=== PATIENT | female | born 1970 | race Caucasian/White ===

== ENCOUNTER → 2016-06-25 | Outpatient (CLI) | payer BC, SELFPAY ==
--- NOTE | 2016-06-25 10:50 | US ---
EXAM DESCRIPTION: US THYROID CLINICAL HISTORY: 45 y/o F, NONTOXIC GOITER COMPARISON: October 2012. TECHNIQUE: Grayscale and color Doppler imaging of the thyroid gland was performed. Images were compared to prior from 2012. FINDINGS: The right thyroid lobe measures 5.1 x 2.0 x 2.6 cm. The left measures 5.1 x 2.3 x 2.1 cm. The isthmus measures 3 mm in diameter. Multinodular goiter noted. The largest nodule seen within the right thyroid lobe measures 1.5 x 1.0 x 1.0 cm. The largest within the left thyroid lobe measures 1.6 x 1.6 x 1.2 cm. IMPRESSION: Multinodular goiter again noted. Given slight technique differences the nodules are likely stable when compared to prior from 2012. Electronically signed by: Jose Luis Blas MD 06/25/2016 10:48
== END ==
LOC: US 09:41
PROVIDERS: ATTEND Family Medicine
DX: E04.8 Other specified nontoxic goiter (principal)

== ENCOUNTER → 2017-02-05 | Outpatient (CLI) | payer OTHER | END | disposition home or self-care (01) | LOC: GMAJ 10:13 | PROVIDERS: ATTEND Family Medicine | DX: Z00.00 Encounter for general adult medical examination without abnormal findings (principal) ==

== ENCOUNTER → 2017-05-12 | Outpatient (CLI) | payer OTHER | END | disposition home or self-care (01) | LOC: GMAJ 11:52 | PROVIDERS: ATTEND Family Medicine | DX: E03.9 Hypothyroidism, unspecified (principal) ==

== ENCOUNTER → 2018-06-26 | Outpatient (CLI) | payer BC | LOC: GMAL 10:34 | PROVIDERS: ATTEND Family Medicine | DX: E03.9 Hypothyroidism, unspecified (principal) ==

== ENCOUNTER → 2019-06-02 | Outpatient (CLI) | payer BC | LOC: GMAJ 14:26 | PROVIDERS: ATTEND Family Medicine | DX: E03.9 Hypothyroidism, unspecified (principal); N30.01 Acute cystitis with hematuria ==

== ENCOUNTER → 2019-07-12 | Outpatient (CLI) | payer BC ==
--- NOTE | 2019-07-13 15:47 | MAM ---
EXAM DESCRIPTION: 3D Screening BILATERAL : Digital Mammography. CLINICAL HISTORY: 48 years Female ANNUAL SCREENING . No complaints and no personal or family history of breast cancer. Menarche age 12. Childbirth age 26. Premenopausal. No HRT. Lifetime risk of developing breast cancer (Tyrer-Cuzick model)(%): 10.2. COMPARISON: 2-D digital screening bilateral mammography October 2014. No prior reports available. TECHNIQUE: Bilateral CC and MLO projection full-field images, digital tomosynthesis mammographic technique. Bilateral digital 2-D full-field MLO images. CAD available for 2-D images. FINDINGS: The breast parenchymal density pattern is: Heterogeneously dense breast tissue, which may obscure small masses. No skin thickening or nipple retraction. Bilateral solitary microcalcifications. Partially circumscribed mass almost 2 cm in diameter in the upper outer quadrant of the posterior third of the left breast. Similar density to the adjacent fibroglandular tissues and approximately 8 cm from the nipple. Possible enlargement from the prior study. No associated microcalcifications. Slightly greater than 1 cm partially circumscribed mass similar density to the fibroglandular tissues. Located 8:30 to 9:00 position, 6 cm from the nipple in the lateral skin surface. No associated microcalcifications. Not well seen on the prior study. These are most likely larger cysts as part of fibrocystic process. IMPRESSION: BI-RADS CATEGORY: 0 - INCOMPLETE- Need additional imaging evaluation. FOLLOW-UP: Recall for additional imaging: Bilateral full-field 2-D and tomosynthesis images LM projection. Directed bilateral breast ultrasound of the regions of interest.. Written communication concerning the IMPRESSION and Follow-up, will be mailed to the patient and referring health care provider. Electronically signed by: Yadiel Elliott MD 07/13/2019 3:45 PM [facility]
== END ==
LOC: MAMMO 10:00
PROVIDERS: ATTEND Obstetrics & Gynecology
DX: Z12.31 Encounter for screening mammogram for malignant neoplasm of breast (principal)

== ENCOUNTER → 2019-08-04 | Outpatient (CLI) | payer BC ==
--- NOTE | 2019-08-05 12:52 | US ---
EXAM DESCRIPTION: 3D Diagnostic, Bilateral (accession [id number]), Breast,Bilateral (accession [id number]): Ultrasound CLINICAL HISTORY: 49 yearsFemaleOther abnormal and inconclusive findings on diagnostic imaging bilateral breast masses. Lifetime risk of developing breast cancer (Tyrer-Cuzick model)(%): 10.2. COMPARISON: Bilateral screening digital breast tomosynthesis, July 12. TECHNIQUE: Bilateral LM projection full-field images, digital tomosynthesis technique. Bilateral 2-D digital full-field images: CC and LM projections. CAD available for 2-D images.. Transcutaneous scanning of the bilateral breasts utilizing prakash-scale and Doppler modes. Scanning performed by the nuclear medicine technologist ; observation by Dr. Elliott. FINDINGS: The breast parenchymal density pattern is: Extremely dense breast tissue, which lowers the sensitivity of mammography. No skin thickening or nipple retraction multiple masses of varying size abutting the lateral aspect of the posterior nipple line from the nipple to the posterior chest wall in the right breast. Large well-defined mass 2:00 to 3:00 middle third of the left breast measuring approximately 2 cm and approximately 6 cm from the nipple. No suspicious microcalcifications bilaterally. Ultrasound: Scanning of the lateral upper outer quadrant of the right breast from the nipple to 8 cm posterior. Mostly fibroglandular elements with more superficial fatty layer. Multiple circumscribed anechoic masses with echogenic quiros. Wider than tall orientation with posterior acoustic enhancement and nonvascular, consistent with cysts. These measure 10 mm, 10.4 mm, 8.1 mm, 8.2 mm, 4.6 mm, 8.0 mm and 8.8 mm. Scanning left breast upper outer quadrant middle third reveals similar tissue distribution is in the right breast. At the 2:00 position 4 cm from the nipple is an anechoic mass with echogenic circumscribed margins. Wider than tall orientation posterior acoustic enhancement and nonvascular, consistent with a cyst. Dimensions are 2.2 x 2.0 cm. A second similar-appearing cyst measures 6 x 5 mm. IMPRESSION: Benign exam. Bilateral fibroglandular and fibrocystic breast tissue. BIRAD CATEGORY: 2 BENIGN FINDINGS. RECOMMENDATIONS: FOLLOW UP: Routine digital bilateral mammographic screening, one year interval from June 2019. Written communication explaining the IMPRESSION and follow-up, will be mailed to the patient and referring health care provider. The FINDINGS and the FOLLOW-UP plan were reviewed in person with the patient after the examination. According to the [employer], yearly mammograms are recommended starting at age 40 and continuing as long as a woman is in good health. Any breast change noted on a breast self-exam should be reported promptly to the patient's healthcare provider. Breast MRI is recommended for women with an approximately 20-25% or greater lifetime risk of breast cancer, including women with a strong family history of breast or ovarian cancer and women who have been treated for Hodgkin's disease. A negative mammographic report should not delay tissue diagnosis in patients with significant clinical history or physical findings. Extremely dense breast tissue limits the sensitivity of digital mammography. Electronically signed by: Yadiel Elliott MD 08/05/2019 12:50 PM [facility]
== END ==
LOC: MAMMO 10:11
PROVIDERS: ATTEND Obstetrics & Gynecology
DX: R92.8 Other abnormal and inconclusive findings on diagnostic imaging of breast (principal)
CPT/HCPCS: 76641; 77066; G0279

== ENCOUNTER → 2020-06-29 | Outpatient (CLI) | payer OTHER | LOC: GMAJ 11:26 | PROVIDERS: ATTEND Family Medicine | DX: E03.9 Hypothyroidism, unspecified (principal); Z79.899 Other long term (current) drug therapy ==

== ENCOUNTER → 2020-08-10 | Outpatient (CLI) | payer OTHER ==
--- NOTE | 2020-08-11 15:35 | MAM ---
EXAM DESCRIPTION: 3D Screening BILATERAL : Digital Mammography. CLINICAL HISTORY: 50 years Female ANNUAL SCREENING . No complaints and no family history of breast cancer. Multiple left breast cysts. Menarche age 12. Childbirth age 21. No HRT.. Lifetime risk of developing breast cancer (Tyrer-Cuzick model)(%): 8.0. COMPARISON: Bilateral screening digital breast tomosynthesis June 2019. Diagnostic digital breast tomosynthesis and directed ultrasound July 2019 No prior reports available. TECHNIQUE: Bilateral CC and MLO projection full-field images, digital tomosynthesis mammographic technique. Bilateral digital 2-D full-field MLO images. CAD available for 2-D images. FINDINGS: The breast parenchymal density pattern is: Heterogeneously dense breast tissue, which may obscure small masses. Solitary microcalcifications. Solitary microcalcifications circumscribed mass stable upper-inner quadrant middle right breast most likely a cyst. Similar appearing masses medial and lateral right breast stable. Circumscribed masses representing cysts same density as Z THYROID 2 tissues stable. No skin thickening or nipple retraction No new focal, stellate mass or density, focal asymmetry , and no suspicious microcalcifications bilaterally. Stable mammograms compared to prior study. IMPRESSION: Benign exam. BIRAD CATEGORY: 2 BENIGN FINDINGS. RECOMMENDATIONS: FOLLOW UP: Routine digital bilateral mammographic screening, one year interval from July 2020. Written communication explaining the IMPRESSION and follow-up, will be mailed to the patient and referring health care provider. According to the [employer], yearly mammograms are recommended starting at age 40 and continuing as long as a woman is in good health. Any breast change noted on a breast self-exam should be reported promptly to the patient's healthcare provider. Breast MRI is recommended for women with an approximately 20-25% or greater lifetime risk of breast cancer, including women with a strong family history of breast or ovarian cancer and women who have been treated for Hodgkin's disease. A negative mammographic report should not delay tissue diagnosis in patients with significant clinical history or physical findings. Extremely dense breast tissue limits the sensitivity of digital mammography. Electronically signed by: Yadiel Elliott MD 08/11/2020 3:34 PM [facility]
== END ==
LOC: MAMMO 14:20
PROVIDERS: ATTEND Obstetrics & Gynecology
DX: Z12.31 Encounter for screening mammogram for malignant neoplasm of breast (principal)